=== PATIENT | female | born 1930 | race Caucasian/White ===

== ENCOUNTER 2016-05-15 11:16 | Emergency (ER) | payer MEDICARE, OTHER ==
[~2016-05-15] VITALS: Ht 160 cm; Wt 65.3 kg
[2016-05-15 11:18] VITALS: TEMP 36.5; Ht 160 cm; Wt 65.3 kg
[2016-05-15] MEDS ORDERED: ONDA4TAB10 SL (11:32)
[2016-05-15] MEDS ORDERED: CIPR1TAB11 PO (11:32)
[2016-05-15] MEDS ORDERED: LEVO88TA PO (11:32)
--- NOTE | 2016-05-15 12:28 | EMERGENCY ROOM VISIT NOTE ---
History Report prepared by Gabbie: Aruna Ram Under the Supervision of: Dr. Seema Yin M.D. First contact with patient: 11:28 Chief Complaint: URINARY SYMPTOMS Stated Complaint: UTI, NAUSEA, NO BM'S History of Present Illness The patient is a 85 year old female who presents to the Emergency Room with complaints of worsening urinary symptoms. Her daughter reports she has had a recent change in mental status and seems to be more confused than normal. She notes the patient does have a history of recurrent UTIs and is currently on a course of Cipro for a previous UTI. The patient also complains of nausea, chills and states she has not had a bowel movement in the past 1 week. She denies any fevers, back pain or abdominal pain. Source of History: patient, family Onset: [employer] Position: other (urinary system) Quality: other (urinary symptoms) Timing: worsening Associated Symptoms: + chills, + nausea, No abdominal pain, No back pain, No fevers Review of Systems See HPI for pertinent positives & negatives. A total of 10 systems reviewed and were otherwise negative. Past Medical & Surgical Medical Problems: (1) History of recurrent UTI (urinary tract infection) (2) Hypertension Family History Diabetes mellitus Social History Smoking Status: Never Smoker Alcohol Use: none Drug Use: none Marital Status: Housing Status: lives alone Occupation Status: retired Current/Historical Medications Scheduled Ciprofloxacin Tab (Cipro), 1 TAB PO BID Levothyroxine Sodium (Synthroid), 88 MCG PO DAILY Scheduled PRN Ondasetron Odt (Zofran Odt), 4 MG SL Q8 PRN for Nausea Allergies Coded Allergies: Penicillins (Verified Allergy, Unknown, unknown, 05/15/16) Sulfasalazine (Verified Allergy, Unknown, unknown, 05/15/16) Physical Exam Vital Signs Date Time Temp Pulse Resp B/P Pulse Ox O2 Delivery O2 Flow Rate FiO2 05/15/16 14:31 77 18 131/77 98 Room Air 05/15/16 11:18 36.5 89 20 139/82 97 Room Air Physical Exam Vital signs reviewed. General: Elderly, well-appearing 85 year old female, in no significant distress. HEENT: No scleral icterus, PERRLA, neck supple. Atraumatic. Cardiovascular: Regular rate and rhythm, no extra sounds. Pulmonary: Clear to auscultation bilaterally, normal work of breathing. Abdomen: Soft, nontender, nondistended, positive bowel sounds. Musculoskeletal: Atraumatic, no peripheral edema. Neurologic: Patient awake alert and oriented x 3, full strength in all 4 extremities. Cranial nerves 2 through 12 grossly intact. Skin: Warm, dry, no rash Medical Decision & Procedures ER Provider Diagnostic Interpretation: This X-Ray was reviewed and interpreted by myself and the radiologist. KUB IMPRESSION: 1. Mild to moderate amount of stool within the colon and rectum. 2. No bowel obstruction. Electronically signed by: Josue Louie M.D. 05/15/2016 1:13 PM Laboratory Results 05/15/16 12:50 Red Blood Count 4.26, Mean Corpuscular Volume 89.0, Mean Corpuscular Hemoglobin 31.5, Mean Corpuscular Hemoglobin Concent 35.4, Mean Platelet Volume 9.7, Neutrophils (%) (Auto) 67.6, Lymphocytes (%) (Auto) 19.7, Monocytes (%) (Auto) 10.8, Eosinophils (%) (Auto) 1.1, Basophils (%) (Auto) 0.5, Neutrophils # (Auto ) 5.31, Lymphocytes # (Auto) 1.55, Monocytes # (Auto) 0.85, Eosinophils # (Auto ) 0.09, Basophils # (Auto) 0.04 05/15/16 12:50 Test 05/15/16 12:30 05/15/16 12:50 05/15/16 12:51 Urine Color YELLOW Urine Appearance CLEAR (CLEAR) Urine pH 5.5 (4.5-7.5) Urine Specific [place] 1.010 (1.000-1.030) Urine Protein NEG (NEG) Urine Glucose (UA) NEG (NEG) Urine Ketones TRACE (NEG) Urine Occult Blood NEG (NEG) Urine Nitrite NEG (NEG) Urine Bilirubin NEG (NEG) Urine Urobilinogen NEG (NEG) Urine Leukocyte Esterase SMALL (NEG) Urine WBC (Auto) 1-5 /hpf (0-5) Urine RBC (Auto) 0-4 /hpf (0-4) Urine Hyaline Casts (Auto) 0 /lpf (0-5) Urine Epithelial Cells (Auto) >30 /lpf (0-5) Urine Bacteria (Auto) NEG (NEG) White Blood Count 7.86 K/uL (4.8-10.8) Red Blood Count 4.26 M/uL (4.2-5.4) Hemoglobin 13.4 g/dL (12.0-16.0) Hematocrit 37.9 % (37-47) Mean Corpuscular Volume 89.0 fL (80-100) Mean Corpuscular Hemoglobin 31.5 pg (25-34) Mean Corpuscular Hemoglobin Concent 35.4 g/dl (32-36) Platelet Count 404 K/uL (130-400) Mean Platelet Volume 9.7 fL (7.4-10.4) Neutrophils (%) (Auto) 67.6 % Lymphocytes (%) (Auto) 19.7 % Monocytes (%) (Auto) 10.8 % Eosinophils (%) (Auto) 1.1 % Basophils (%) (Auto) 0.5 % Neutrophils # (Auto) 5.31 K/uL (1.4-6.5) Lymphocytes # (Auto) 1.55 K/uL (1.2-3.4) Monocytes # (Auto) 0.85 K/uL (0.11-0.59) Eosinophils # (Auto) 0.09 K/uL (0-0.5) Basophils # (Auto) 0.04 K/uL (0-0.2) RDW Standard Deviation 49.0 fL (36.4-46.3) RDW Coefficient of Variation 15.1 % (11.5-14.5) Immature Granulocyte % (Auto) 0.3 % Immature Granulocyte # (Auto) 0.02 K/uL (0.00-0.02) Anion Gap 10.0 mmol/L (3-11) Est Creatinine Clear Calc Drug Dose 32.7 ml/min Estimated GFR () 52.3 Estimated GFR (Non- 45.1 BUN/Creatinine Ratio 10.3 (10-20) Calcium Level 9.4 mg/dl (8.5-10.1) Magnesium Level 2.3 mg/dl (1.8-2.4) Total Bilirubin 0.7 mg/dl (0.2-1) Direct Bilirubin 0.1 mg/dl (0-0.2) Aspartate Amino Transf (AST/SGOT) 25 U/L (15-37) Alanine Aminotransferase (ALT/SGPT) 30 U/L (12-78) Alkaline Phosphatase 98 U/L (45-117) Total Protein 8.0 gm/dl (6.4-8.2) Albumin 3.9 gm/dl (3.4-5.0) Lipase 243 U/L (73-393) Bedside Troponin I 0.000 ng/ml (0-0.045) Laboratory results per my review. Medications Administered Medications (Trade) Dose Ordered Sig/Sarahy Route Start Time Stop Time Status Last Admin Dose Admin Miscellaneous (Soap Suds Enema) [address] 05/15/16 13:13 05/15/16 13:14 DC 05/15/16 13:55 1 EA ECG Indication: weakness Rate (beats per minute): 78 Rhythm: sinus with SA Findings: no acute ischemic change, no ectopy, other (left atrial enlargement) ED Course 1130: Past medical records reviewed. The patient was evaluated in room C3. A complete history and physical examination was performed. 1235: Cefepime HCl 1000 mg/Dextrose 111.3 ml @ 200 mls/hr IV. 1313: Soap Suds Enema [address] CT. 1350: Nursing informed me the patient is not tolerating her enema and cannot keep the fluid in. 1435: I reevaluated the patient. She is feeling much better. I discussed her results and discharge instructions and she and her family verbalized complete understanding and agreement. 1445: Magnesium Citrate 150 ml PO. Medical Decision The differential diagnoses considered include weakness, resistant UTI and medication effect. This patient was evaluated and appeared to be in no significant distress. Physical examination is fairly unrevealing. Laboratory work reveals a negative UA, stable electrolytes and CBC. Patient's cardiac enzymes are negative. EKG reveals a normal sinus rhythm without evidence of acute ischemia. KUB x-ray was performed and reveals a moderate amount of fecal retention. This is likely continuing to the patient's nausea. An attempt at a soapsuds enema was made however the patient was unable to retain the fluid. She was given a bottle of magnesium titrate to take home. Patient will start Colace 100 mg twice daily after she has a BM. She will use Pepcid 20 mg twice daily as needed for gastritis. The patient will stop the Cipro as this may be contributing to her nausea. Patient has an appointment with her urologist in 2 days as well as her PCP in 3 days. She is discharged in care of her daughter and will return to the ER at any time for worsening of symptoms or any medical concerns. Impression Primary Impression: Constipation Additional Impression: Nausea Scribe Attestation The scribe's documentation has been prepared under my direction and personally reviewed by me in its entirety. I confirm that the note above accurately reflects all work, treatment, procedures, and medical decision making performed by me. Departure Information Dispostion Home / Self-Care Referrals Nidia Montesinos M.D. (PCP) Patient Instructions Constipation, [facility] Additional Instructions -Please take additional half of Mg Citrate prior to going to bed -Recommend taking 100mg Colace twice a day and Pepcid 20 mg -Followup with Dr. Phillips (Urology) on Tuesday04/16/16 -Followup with PCP on Tuesday04/17/16 Problem Qualifiers
[2016-05-15] MEDS ORDERED: CEFEPIME IV 1,000 MG in DEXTROSE 5% 100ML 100 ML IV STA (12:35)
[2016-05-15 12:45] LABS: URINE APPEARANCE CLEAR (CLEAR); URINE BILIRUBIN NEG (NEG); URINE COLOR YELLOW; URINE EPITHELIAL CELL AUTO >30 /lpf (0-5); URINE NITRITE NEG (NEG); URINE PH 5.5 (4.5-7.5); UROBILINOGEN NEG (NEG); ZZUR CULT IF INDIC CLEAN CATCH NO
[2016-05-15 12:48] LABS: MANUAL MICROSCOPIC REQUIRED? NO; REVIEW REQ? NO
[2016-05-15 12:58] LABS: BASO % 0.5 %; BASO ABS # 0.04 K/uL (0-0.2); COMPLETE YES; EOS % 1.1 %; HEMATOCRIT 37.9 % (37-47); IG% 0.3 %; LYMPH % 19.7 %; LYMPH ABS # 1.55 K/uL (1.2-3.4); MEAN CORPUSCULAR HEMOGLOBIN 31.5 pg (25-34); MEAN CORPUSCULAR HGB CONC 35.4 g/dl (32-36); MEAN PLATELET VOLUME 9.7 fL (7.4-10.4); MONO % 10.8 %; NEUT % 67.6 %; PLATELET COUNT 404 K/uL (130-400); RED BLOOD COUNT 4.26 M/uL (4.2-5.4); WHITE BLOOD COUNT 7.86 K/uL (4.8-10.8)
[2016-05-15] MEDS ORDERED: SOAP SUDS ENEMA PR STA (13:13)
--- NOTE | 2016-05-15 13:14 | DIAGNOSTIC IMAGING REPORT ---
KUB CLINICAL HISTORY: Constipation. COMPARISON STUDY: None. FINDINGS: There is mild levoscoliosis of the lumbar spine. Visualized portions of the chest demonstrate a possible hiatal hernia. The bowel gas pattern is normal. Pelvic calcifications likely reflect phleboliths. There is a mrwl-rl-ocehykbc amount stool within the colon and rectum. IMPRESSION: 1. Mild to moderate amount of stool within the colon and rectum. 2. No bowel obstruction. Electronically signed by: Josue Louie M.D. 05/15/2016 1:13 PM Dictated Date/Time: 05/15/2016 1:11 PM
[2016-05-15 13:19] LABS: BUN/CREATININE RATIO 10.3 (10-20); CALCIUM 9.4 mg/dl (8.5-10.1); CREATININE 1.1 mg/dl (0.60-1.20); MAGNESIUM 2.3 mg/dl (1.8-2.4); POTASSIUM 3.8 mmol/L (3.5-5.1)
[2016-05-15 14:31] VITALS: BP 131/77; PULSE 77; O2SAT 98
[2016-05-15] MEDS ORDERED: MAGNESIUM CITRATE 296 ML/BTL PO ONE (14:45)
--- NOTE | 2016-05-15 14:45 | EMERGENCY ROOM VISIT NOTE ---
History First contact with patient: 11:38 Chief Complaint: URINARY SYMPTOMS Stated Complaint: UTI, NAUSEA, NO BM'S History of Present Illness The patient is a 85 year old female w/ Hx of recurrent UTI x 2 yrs who presents to the Emergency Room with complaints of suspected UTI and constipation with no BM in 1 wk. Patient reports increased urinary urgency x 1 wk. SHe was evaluate [facility] , initially placed on Bactrim then switched to Ciprofloxacin which she has been on for 1 wk. Pt denies headache, change in vision, fevers, chest pain, shortness of breath, abdominal pain, diarrhea, pain with urination, and melena. Review of Systems See HPI for pertinent positives & negatives. A total of 10 systems reviewed and were otherwise negative. Past Medical/Surgical History Medical Problems: (1) History of recurrent UTI (urinary tract infection) (2) Hypertension Family History Diabetes mellitus Social History Smoking Status: Never Smoker Alcohol Use: none Drug Use: none Marital Status: Housing Status: lives alone Occupation Status: retired Current/Historical Medications Scheduled Ciprofloxacin Tab (Cipro), 1 TAB PO BID Levothyroxine Sodium (Synthroid), 88 MCG PO DAILY Scheduled PRN Ondasetron Odt (Zofran Odt), 4 MG SL Q8 PRN for Nausea Allergies Coded Allergies: Penicillins (Verified Allergy, Unknown, unknown, 05/15/16) Sulfasalazine (Verified Allergy, Unknown, unknown, 05/15/16) Physical Exam Vital Signs Date Time Temp Pulse Resp B/P Pulse Ox O2 Delivery O2 Flow Rate FiO2 05/15/16 14:31 77 18 131/77 98 Room Air 05/15/16 11:18 36.5 89 20 139/82 97 Room Air Physical Exam GENERAL: alert, well appearing, well nourished, no distress, non-toxic EYE EXAM: normal conjunctiva, PERRL and EOM's grossly intact NECK: supple, no nuchal rigidity, no adenopathy, non-tender LUNGS: Clear to auscultation. Normal chest wall mechanics HEART: no murmurs, S1 normal and S2 normal ABDOMEN: abdomen soft, non-tender, normo-active bowel sounds, no masses, no rebound or guarding. BACK: Back is symmetrical on inspection and there is no deformity, no midline tenderness, no CVA tenderness. SKIN: no rashes and no bruising UPPER EXTREMITIES: upper extremities are grossly normal. LOWER EXTREMITIES: No pitting edema. Medical Decision & Procedures ER Provider Diagnostic Interpretation: KUB CLINICAL HISTORY: Constipation. COMPARISON STUDY: None. FINDINGS: There is mild levoscoliosis of the lumbar spine. Visualized portions of the chest demonstrate a possible hiatal hernia. The bowel gas pattern is normal. Pelvic calcifications likely reflect phleboliths. There is a frxh-ji-gdgabtne amount stool within the colon and rectum. IMPRESSION: 1. Mild to moderate amount of stool within the colon and rectum. 2. No bowel obstruction. Laboratory Results 05/15/16 12:50 Red Blood Count 4.26, Mean Corpuscular Volume 89.0, Mean Corpuscular Hemoglobin 31.5, Mean Corpuscular Hemoglobin Concent 35.4, Mean Platelet Volume 9.7, Neutrophils (%) (Auto) 67.6, Lymphocytes (%) (Auto) 19.7, Monocytes (%) (Auto) 10.8, Eosinophils (%) (Auto) 1.1, Basophils (%) (Auto) 0.5, Neutrophils # (Auto ) 5.31, Lymphocytes # (Auto) 1.55, Monocytes # (Auto) 0.85, Eosinophils # (Auto ) 0.09, Basophils # (Auto) 0.04 05/15/16 12:50 Test 05/15/16 12:30 05/15/16 12:50 05/15/16 12:51 Urine Color YELLOW Urine Appearance CLEAR (CLEAR) Urine pH 5.5 (4.5-7.5) Urine Specific [place] 1.010 (1.000-1.030) Urine Protein NEG (NEG) Urine Glucose (UA) NEG (NEG) Urine Ketones TRACE (NEG) Urine Occult Blood NEG (NEG) Urine Nitrite NEG (NEG) Urine Bilirubin NEG (NEG) Urine Urobilinogen NEG (NEG) Urine Leukocyte Esterase SMALL (NEG) Urine WBC (Auto) 1-5 /hpf (0-5) Urine RBC (Auto) 0-4 /hpf (0-4) Urine Hyaline Casts (Auto) 0 /lpf (0-5) Urine Epithelial Cells (Auto) >30 /lpf (0-5) Urine Bacteria (Auto) NEG (NEG) White Blood Count 7.86 K/uL (4.8-10.8) Red Blood Count 4.26 M/uL (4.2-5.4) Hemoglobin 13.4 g/dL (12.0-16.0) Hematocrit 37.9 % (37-47) Mean Corpuscular Volume 89.0 fL (80-100) Mean Corpuscular Hemoglobin 31.5 pg (25-34) Mean Corpuscular Hemoglobin Concent 35.4 g/dl (32-36) Platelet Count 404 K/uL (130-400) Mean Platelet Volume 9.7 fL (7.4-10.4) Neutrophils (%) (Auto) 67.6 % Lymphocytes (%) (Auto) 19.7 % Monocytes (%) (Auto) 10.8 % Eosinophils (%) (Auto) 1.1 % Basophils (%) (Auto) 0.5 % Neutrophils # (Auto) 5.31 K/uL (1.4-6.5) Lymphocytes # (Auto) 1.55 K/uL (1.2-3.4) Monocytes # (Auto) 0.85 K/uL (0.11-0.59) Eosinophils # (Auto) 0.09 K/uL (0-0.5) Basophils # (Auto) 0.04 K/uL (0-0.2) RDW Standard Deviation 49.0 fL (36.4-46.3) RDW Coefficient of Variation 15.1 % (11.5-14.5) Immature Granulocyte % (Auto) 0.3 % Immature Granulocyte # (Auto) 0.02 K/uL (0.00-0.02) Anion Gap 10.0 mmol/L (3-11) Est Creatinine Clear Calc Drug Dose 32.7 ml/min Estimated GFR () 52.3 Estimated GFR (Non- 45.1 BUN/Creatinine Ratio 10.3 (10-20) Calcium Level 9.4 mg/dl (8.5-10.1) Magnesium Level 2.3 mg/dl (1.8-2.4) Total Bilirubin 0.7 mg/dl (0.2-1) Direct Bilirubin 0.1 mg/dl (0-0.2) Aspartate Amino Transf (AST/SGOT) 25 U/L (15-37) Alanine Aminotransferase (ALT/SGPT) 30 U/L (12-78) Alkaline Phosphatase 98 U/L (45-117) Total Protein 8.0 gm/dl (6.4-8.2) Albumin 3.9 gm/dl (3.4-5.0) Lipase 243 U/L (73-393) Bedside Troponin I 0.000 ng/ml (0-0.045) Medications Administered Medications (Trade) Dose Ordered Sig/Sarahy Route Start Time Stop Time Status Last Admin Dose Admin Miscellaneous (Soap Suds Enema) 1 ea ONE STAT [place] 05/15/16 13:13 05/15/16 13:14 DC 05/15/16 13:55 1 EA Medical Decision 85 yo F p/w hx 1 wk hx of urinary urgency and constipation w/o BM for 1 wk, VSS CBC unremarkable BMP: unremarkable UA: unremarkable KUB: Mild to moderate amount of stool within the colon and rectum. UTI ruled out with UA. Patient does have impacted stool in colon/rectum per KUB. - Attempted Soap suds Enema x 2 with minimal success - Discharged with magnesium citrate to be taken at home with and recommendations for Colace 100mg BID, Pepcid 20 mg with followup with Urologist , Alan Hughes and PCP on 04/16/16 ,04/17/16 respectively Impression Primary Impression: Constipation Departure Information Dispostion Home / Self-Care Referrals Nidia Montesinos M.D. (PCP) Patient Instructions My [facility] Resident Tracking Resident Involvement: Resident Care Provided Care Provided: Adult ED
== END 2016-05-15 15:02 | disposition home or self-care (01) ==
LOC: C.EDB 11:19 → C.EDC 15:02
DX: K59.00 Constipation, unspecified (principal); R11.0 Nausea; I10 Essential (primary) hypertension; Z87.440 Personal history of urinary (tract) infections; Z79.899 Other long term (current) drug therapy; Z88.0 Allergy status to penicillin; Z88.2 Allergy status to sulfonamides; Z83.3 Family history of diabetes mellitus